=== PATIENT | female | born 1975 | race Caucasian/White ===

== ENCOUNTER → 2023-07-21 13:14 | Outpatient (CLI) | payer OTHER, SELFPAY ==
--- NOTE | 2023-07-21 13:32 | DI.RAD.S_ITS ---
PROCEDURE: XR ANKLE LT MIN 3V INDICATIONS: PAIN IN LT ANKLE TECHNIQUE: 3 views of the ankle were acquired. COMPARISON: None. FINDINGS: Bones: No fractures or dislocations. Ankle mortise is normally aligned. No suspicious bony lesions. Soft tissues: No tibiotalar joint effusion. Achilles tendon appears normal. IMPRESSION: No acute ankle fracture or dislocation. No gross soft tissue abnormalities. Dictated by: Junior Stewart M.D. on 07/21/2023 at 16:52 Approved by: Junior Stewart M.D. on 07/21/2023 at 16:52
== END ==
PROVIDERS: PCP Registered Nurse; Referring Provider Registered Nurse; Visit Provider Registered Nurse
DX: M25.572 Pain in left ankle and joints of left foot (principal)
CPT/HCPCS: 73610

== ENCOUNTER 2024-04-28 22:45 | Emergency (ER) | payer OTHER, SELFPAY ==
[2024-04-28 22:50] VITALS: BP 195/114; PULSE 106; RESP 16; TEMP 37.1; O2SAT 97; BMI 22.8
--- NOTE | 2024-04-28 22:50 | ED_ITS ---
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 She states that afterwards she started noticing that her right wrist was uncomfortable. It was not 1 specific incident that caused the pain. No elbow pain. No shoulder pain. Has not tried anything for the symptoms prior to arrival. Related Data Previous Rx's Medication Instructions Recorded hydrocodone 5 mg-acetaminophen 325 1 tab PO Q6HP PRN #15 tabs //17 mg tablet Allergies Allergy/AdvReac Type Severity Reaction Status Date / Time citalopram [From CELEXA] Allergy Unknown rash Verified 04/28/24 22:59 clindamycin [CLINDAMYCIN] Allergy Unknown stomach Verified 04/28/24 22:59 pain latex [LATEX] Allergy Unknown rash Verified 04/28/24 22:59 Review of Systems Musculoskeletal Musculoskeletal: Reports system reviewed and no additional complaints, except as documented Integumentary/Breasts Skin/Breast: Reports system reviewed and no additional complaints, except as documented Neurologic Neurologic: Reports system reviewed and no additional complaints, except as documented Exam Cardio Pulses: radial pulses present on the right Skin General: no rashes or lesions noted Neuro Sensory Exam: no sensory deficits noted Extrem Other: Mild discomfort to palpation of the radial aspect of the wrist. No snuffbox tenderness. She can flex and extend. Her left elbows unremarkable. Procedures Orthopedic Splinting/Casting Injury #1: Side: right Upper Extremity Injury Location: wrist Upper Extremity Immobilizer: wrist splint Post splinting neuro exam: intact Post splinting vascular exam: intact Placed by: Nursing Course Orders Ordered: Discontinued Medications Ketorolac Tromethamine (Ketorolac 30 Mg/Ml Vial) 30 mg IM NOW ONE Stop: 04/28/24 22:57 Medical Decision Making MDM Narrative Medical decision making narrative: Neurovascularly intact. Low suspicion fracture. No indication radiologic studies. Splint for comfort. Patient was given return precautions and follow- up instructions. She expressed understanding and agreement. Discharge Plan Departure Patient Disposition: Home Clinical Impression: Sprain of wrist Instructions: DI for Wrist Sprain, How To Perform RICE (Rest, Ice, Compress, Elevate) Activity Restrictions/Additional Instructions: The wrist splint as for your comfort. You can take it off to wash your hands. You can take Tylenol for discomfort. Return to the emergency department for new symptoms. Prescriptions: No Action hydrocodone-acetaminophen 5 MG/325 MG tablet 1 tab PO Q6HP PRNQty: 15 0RF Referrals: Alea Mckenna ARNP [Primary Care Provider] - Stand Alone Forms: Patient Portal/API/Survey
[2024-04-28] MEDS: KETOROLAC 30 MG/ML VIAL IM (23:02)
== END 2024-04-28 23:11 | disposition home or self-care (01) ==
LOC: ED 23:18
PROVIDERS: Emergency Provider Emergency Medicine; PCP Registered Nurse
DX: S63.501A Unspecified sprain of right wrist, initial encounter (principal); X58.XXXA Exposure to other specified factors, initial encounter
CPT/HCPCS: 96372; 99283; J1885